=== PATIENT | male | born 1985 | race African-American/Black ===

== ENCOUNTER 2016-12-30 04:15 | Emergency (ER) | payer BC, OTHER ==
[~2016-12-30] VITALS: Wt 114.5 kg
[2016-12-30 06:30] LABS: ADD SCAN DIFF NO
[2016-12-30 06:38] LABS: BASOPHILS % 0.4 % (0.0-2.0); EOSINOPHILS # 0.2 10^3/ul (0.0-0.5); EOSINOPHILS % 4.2 % (0.0-7.0); HEMATOCRIT 47.1 % (42.0-52.0); HEMOGLOBIN 15.4 g/dl (14.0-18.0); LYMPHOCYTES # 1.6 10^3/ul (0.8-2.9); LYMPHOCYTES % 32.1 % (15.0-51.0); MEAN CORPUSCULAR HEMOGLOBIN 30.3 pg (29.0-33.0); MEAN CORPUSCULAR HGB CONC 32.7 g/dl (32.0-37.0); MEAN CORPUSCULAR VOLUME 92.7 fl (82.0-101.0); MEAN PLATELET VOLUME 10.1 fl (7.4-10.4); MONOCYTE # 0.5 10^3/ul (0.3-0.9); MONOCYTES % 10.6 % (0.0-11.0); NEUTROPHIL # 2.6 10^3/ul (1.6-7.5); NEUTROPHILS % 52.5 % (39.0-77.0); PLATELET COUNT 234 10^3/UL (140-415); RED BLOOD COUNT 5.08 10^6/ul (4.70-6.10)
[2016-12-30 06:56] LABS: ALBUMIN 4.8 g/dl (3.3-4.9); ALBUMIN/GLOBULIN RATIO 1.41; BILIRUBIN,INDIRECT 0.2 mg/dl (0-1.1); BILIRUBIN,TOTAL 0.2 mg/dl (0.2-1.3); CALCIUM 9.7 mg/dl (8.4-10.2); CREATININE 1.1 mg/dl (0.61-1.24); POTASSIUM 4.3 mmol/L (3.5-5.1); TOTAL PROTEIN 8.2 g/dl (6.1-8.1)
[2016-12-30 06:58] LABS: ADD UMIC NO; UR BILIRUBIN (Dip) NEGATIVE (NEGATIVE); UR BLOOD (Dip) NEGATIVE (NEGATIVE); UR CLARITY CLEAR (CLEAR); UR COLOR LT. YELLOW (YELLOW); UR GLUCOSE (Dip) NEGATIVE (NEGATIVE); UR KETONES (Dip) NEGATIVE (NEGATIVE); UR LEUKOCYTE ESTERASE (Dip) NEGATIVE (NEGATIVE); UR NITRITE (Dip) NEGATIVE (NEGATIVE); UR TOTAL PROTEIN (Dip) NEGATIVE (NEGATIVE); UR UROBILINOGEN (Dip) 0.2 E.U./dL (0.1-1.0)
--- NOTE | 2016-12-30 07:08 | RADRPT ---
PROCEDURE: XR Chest. CLINICAL INDICATION: Back and abdominal pain TECHNIQUE: 2 AP views of the chest were obtained COMPARISON: None. FINDINGS: There is mild elevation of the right diaphragm. No focal airspace opacification, pleural effusion o r pneumothorax is seen. The cardiomediastinal silhouette is within normal limits for size. The oss eous structures are unremarkable. IMPRESSION: 1. No radiographic evidence of acute cardiopulmonary disease. 2. Mild elevation of the right diaphragm. RPTAT: HH .Nydia Friedman MD, MD Date Time Electronically viewed and signed by .Nydia Friedman MD, MD on 12/30/2016 07:08 .G/
--- NOTE | 2016-12-30 08:15 | RADRPT ---
PROCEDURE: CT Abdomen and pelvis without contrast. CLINICAL INDICATION: r flank pain TECHNIQUE: CT scan of the abdomen and pelvis without contrast was performed on a multidetector hi gh-resolution CT scan. . Coronal and sagittal reformatted images were obtained from the axial sour ce images. Standard CT scan of the abdomen pelvis without contrast protocols were performed. The total exam CTDI equals 20.44 mGy and the total exam DLP equals 1377.37 mGy-cm. One or more of the following dose reduction techniques were used: - Automated exposure control. - Adjustment of the mA and/or kV according to patient size. Use of iterative reconstruction technique. COMPARISON: None. FINDINGS: Note that the proximal ascending colon extends into the left upper abdomen consistent with malrotati on. There is however no evidence of large bowel dilatation. The appendix is unremarkable. The sto mach and small bowel are unremarkable. Negative for intra-abdominal free air, free fluid, abscesses or lymphadenopathy. The kidneys are normal in size without calcified renal calculi hydronephrosis or intra renal masses bilaterally. There are no calcified calculi in the distribution of either ureter. The urinary blad nacho is partially contracted. There is moderate circumferential urinary bladder wall thickening whic h may all relate to lack of optimal distension. As cystitis cannot be excluded. The prostate is un remarkable. The liver spleen pancreas adrenal glands and gallbladder are unremarkable. No evidence of biliary d uctal dilation. There is a tiny fat containing umbilical hernia without herniated bowel or strangulation. In additi on there is a midline ventral supraumbilical fat-containing hernia without herniated bowel or chandra ulation. The remainder of the lower thoracic and abdominal/pelvic le are unremarkable. The aorta is unremarkable. There is elevation and eventration of the right hemidiaphragm. The lung bases are unremarkable. The osseous structures are unremarkable. IMPRESSION: 1. No evidence of calcified urinary calculi or obstructive uropathy. 2. Circumferential urinary bladder wall thickening likely due to lack of optimal distension this cy stitis cannot be excluded. 3. 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 A large bowel is otherwise unremarkable and the appendix is unremarkable. 4. No evidence of intra-abdominal free air fluid abscesses or lymphadenopathy. 5. Fat-containing umbilical and supraumbilical hernia is without herniated bowel or strangulation. RPTAT:AAJJ Estrellita Wilson Physician Date Time Electronically viewed and signed by Estrellita Wilson Physician on 12/30/2016 08:14 BOBO/
[2016-12-30] MEDS ORDERED: KETOROLAC 30 MG INJ IV STA (08:38)
--- NOTE | 2016-12-30 08:40 | ERD ---
ER Documentation Chief Complaint Date/Time DATE: 12/30/16 TIME: 06 Chief Complaint Right upper quadrant pain with flank pain X3 days. More when he breath in. HPI 31-year-old male presents to the emergency department complaining of right flank pain. Patient states that he has had the discomfort on and off for 2 or 3 weeks now. It hurts worse when he takes a deep breath. He has had no cough or hemoptysis. He reports no fevers, chills, sputum production. He also reports no nausea vomiting or anorexia or urinary symptoms including no hematuria. The pain is continued over the last few days and over the last 3 days got somewhat worse. He currently describes it as a 5/10. ROS All systems reviewed and are negative except as per history of present illness. Medications Home Meds No Active Prescriptions or Reported Meds Allergies Allergies: Coded Allergies: No Known Allergy (Unverified , 12/30/16) PMhx/Soc Medical and Surgical Hx: pt denies Medical Hx, pt denies Surgical Hx History of Surgery: No Anesthesia Reaction: No Hx Neurological Disorder: No Hx Respiratory Disorders: No Hx Cardiac Disorders: No Hx Psychiatric Problems: No Hx Miscellaneous Medical Probl: No Hx Alcohol Use: Yes (SOCIAL) Hx Substance Use: No Hx Tobacco Use: No Smoking Status: Never smoker FmHx Noncontributory for chief complaint Physical Exam Vitals Vital Signs Date Time Temp Pulse Resp B/P Pulse Ox O2 Delivery O2 Flow Rate FiO2 12/30/16 04:19 98.2 80 18 132/87 97 Physical Exam GENERAL: The patient is well developed and appropriate for usual state of health in no apparent distress HEENT: Pupils equal, round, and reactive to light. EOMI. There is no scleral icterus. NECK: C-spine is soft and supple, there is no meningismus. There is no cervical lymphadenopathy. LUNGS: Clear to auscultation bilaterally. There are no rales, wheezes or rhonchi. HEART: Regular rate and rhythm, no murmurs, clicks, rubs or gallops. ABDOMEN: Soft, non-tender, non-distended. There are bowel sounds in all four quadrants. No rebound or guarding. Negative Rojas sign EXTREMITIES: There is no peripheral cyanosis or edema. No focal swelling or erythema. NEURO: The patient moves all four extremities with 5/5 strength. Cranial nerves II - XII are intact. Normal gait. Alert and oriented SKIN: There is no apparent rash or petechiae. HEME/LYMPHATIC: There is no evidence of excessive bruising or lymphedema. PSYCHIATRIC: The patient does not appear anxious or depressed. Result Diagram: 12/30/16 0520 12/30/16 0520 Results 24 hrs Laboratory Tests Test 12/30/16 05:20 12/30/16 05:49 White Blood Count 5.010^3/ul Red Blood Count 5.0810^6/ul Hemoglobin 15.4g/dl Hematocrit 47.1% Mean Corpuscular Volume 92.7fl Mean Corpuscular Hemoglobin 30.3pg Mean Corpuscular Hemoglobin Concent 32.7g/dl Red Cell Distribution Width 12.0% Platelet Count 77060^3/UL Mean Platelet Volume 10.1fl Neutrophils % 52.5% Lymphocytes % 32.1% Monocytes % 10.6% Eosinophils % 4.2% Basophils % 0.4% Nucleated Red Blood Cells % 0.0/100WBC Neutrophils # 2.610^3/ul Lymphocytes # 1.610^3/ul Monocytes # 0.510^3/ul Eosinophils # 0.210^3/ul Basophils # 0.010^3/ul Nucleated Red Blood Cells # 0.010^3/ul Sodium Level 144mmol/L Potassium Level 4.3mmol/L Chloride Level 105mmol/L Carbon Dioxide Level 30mmol/L Anion Gap 13 Blood Urea Nitrogen 13mg/dl Creatinine 1.10mg/dl Glucose Level 88mg/dl Calcium Level 9.7mg/dl Total Bilirubin 0.2mg/dl Direct Bilirubin 0.00mg/dl Indirect Bilirubin 0.2mg/dl Aspartate Amino Transf (AST/SGOT) 49IU/L Alanine Aminotransferase (ALT/SGPT) 61IU/L Alkaline Phosphatase 38IU/L Total Protein 8.2g/dl Albumin 4.8g/dl Globulin 3.40g/dl Albumin/Globulin Ratio 1.41 Lipase 109U/L Urine Color LT. YELLOW Urine Clarity CLEAR Urine pH 6.0 Urine Specific Vanduser 1.020 Urine Ketones NEGATIVE Urine Nitrite NEGATIVE Urine Bilirubin NEGATIVE Urine Urobilinogen 0.2 E.U./dL Urine Leukocyte Esterase NEGATIVE Urine Hemoglobin NEGATIVE Urine Glucose NEGATIVE% Urine Total Protein NEGATIVE Procedures/MDM Patient was taken to a room, seen and evaluated. Comfort measures were initiated. Diagnostic tests were ordered and reviewed. 3 LEAD RHYTHM STRIP: Normal sinus rhythm without ectopy RADIOLOGY: reviewed with the radiologist REEVALUATION: Patient remains comfortable in appearance with a benign abdomen MEDICAL DECISION MAKIN-year-old male presents with right flank pain of uncertain etiology. Differential diagnosis entertained was broad and potential high acuity. At this time, patient shows no evidence of active infection, pneumonia, pulmonary or GI issues. Patient appears to be clinically improved after symptomatic management and observation and appears appropriate for outpatient care. Departure Diagnosis: Primary Impression: Flank pain Condition: Stable Patient Instructions: Flank Pain, Uncertain Cause Referrals: NATALY RICO (PCP) Additional Instructions: See your doctor for follow-up as discussed. Take a copy of your test results, if appropriate, to this follow-up visit. See your doctor or return here if your symptoms do not improve as expected. At any time, please return to the emergency department for any change or worsening in her symptoms. CRISTY RIZO Dec 30, 2016 08:40
[2016-12-30] MEDS ORDERED: ONDANSETRON 4 MG INJ IV STA (09:02)
[2016-12-30 09:30] VITALS: BP 138/82; PULSE 61; RESP 16; TEMP 97.8
[2016-12-30] MEDS ORDERED: FAMOTIDINE 20 MG INJ IV ONE (09:30)
== END 2016-12-30 09:46 | disposition home or self-care (01) ==
LOC: E/R 04:15
DX: R10.11 Right upper quadrant pain (principal)
CPT/HCPCS: 36415; 71010; 74176; 80053; 81003; 83690; 85025; 96374; 96375; 99285; J1885; J2405